=== PATIENT | female | born 1955 | race Caucasian/White ===

== ENCOUNTER 2020-04-01 09:06 | Outpatient (REF) | payer BC, SELFPAY ==
--- NOTE | ~2020-04-01 | MM_ITS ---
EXAMINATION: MM SCREENING DIGITAL BREAST TOMOSYNTHESIS, BILATERAL CLINICAL INFORMATION: Screening. Asymptomatic. The lifetime risk of breast cancer based on the Tyrer-Cuzick Model is 8%. COMPARISON: Mammography: 01/07/2019, 12/24/2017, 12/06/2016 TECHNIQUE: Digital breast tomosynthesis is performed in both the craniocaudal and mediolateral oblique views along with computer-aided detection (CAD). Synthesized 2D images are generated from the tomosynthesis. FINDINGS: There are scattered areas of fibroglandular density (ACR BI-RADS breast composition Category b). There are no significant masses, abnormal calcifications, or other abnormalities. Bilateral upper quadrant asymmetries are similar to prior studies. No developing density. No significant changes. MM/MM tomosynthesis screening BI IMPRESSION: No significant changes from prior exams. ASSESSMENT: BI-RADS 2: Benign RECOMMENDATION: Routine annual mammography screening. This patient's information was entered into a reminder system with a target due date for their next mammogram.
== END 2020-04-01 09:07 | disposition home or self-care (01) ==
LOC: HO.MAMMO 09:06
PROVIDERS: PCP Internal Medicine; Visit Provider Internal Medicine
DX: Z12.31 Encounter for screening mammogram for malignant neoplasm of breast (principal)
CPT/HCPCS: 77063; 77067

== ENCOUNTER 2021-04-25 10:32 | Outpatient (REF) | payer BC, SELFPAY ==
--- NOTE | ~2021-04-25 | MM_ITS ---
EXAMINATION: MM SCREENING DIGITAL BREAST TOMOSYNTHESIS, BILATERAL CLINICAL INFORMATION: Screening. Asymptomatic. The lifetime risk of breast cancer based on the Tyrer-Cuzick Model is 7%. COMPARISON: Mammography: 04/01/2020, 01/07/2019, 12/24/2017, 12/06/2016 TECHNIQUE: Digital breast tomosynthesis is performed in both the craniocaudal and mediolateral oblique views along with computer-aided detection (CAD). Synthesized 2D images are generated from the tomosynthesis. FINDINGS: There are scattered areas of fibroglandular density (ACR BI-RADS breast composition Category b). There are no significant masses, abnormal calcifications, or other abnormalities. Asymmetry upper right breast and lesser upper left breast are similar to prior studies. No developing density. No architectural abnormality or significant change from prior exams. MM/MM tomosynthesis screening BI IMPRESSION: No mammographic evidence of malignancy. ASSESSMENT: BI-RADS 2: Benign RECOMMENDATION: Routine annual mammography screening. This patient's information was entered into a reminder system with a target due date for their next mammogram.
== END 2021-04-25 10:33 | disposition home or self-care (01) ==
LOC: HO.MAMMO 10:32
PROVIDERS: PCP Internal Medicine; Visit Provider Internal Medicine
DX: Z12.31 Encounter for screening mammogram for malignant neoplasm of breast (principal)
CPT/HCPCS: 77063; 77067

== ENCOUNTER 2022-01-11 08:48 | Outpatient (REF) | payer BC, SELFPAY ==
--- NOTE | ~2022-01-11 | MM_ITS ---
EXAMINATION: BONE DENSITOMETRY CLINICAL INDICATION: Osteoporosis. COMPARISON: Previous BD dated 08/27/2019 and baseline BD dated 03/17/2008. TECHNIQUE: Using a RRT Global DXA System (software version: 13.1) manufactured by [employer], dual-energy x-ray absorptiometry was performed of the lumbar spine and left hip. The images are of good technical quality. Summary results are attached. FINDINGS: AP SPINE L1-L2 (excluding L3 and L4): The data of L1-L4 has been changed to exclude the L3 and L4 vertebral bodies, because degenerative changes at these levels may cause overestimation of lumbar spine density. Current: BMD 0.981 g/cm2, Z-score 0.6, T-score -1.5, osteopenia, 5.9% decrease from previous, 13.2% decrease from baseline (<5% change is not significant). Prior: BMD 1.043 g/cm2. Baseline: BMD 1.130 g/cm2. LEFT FEMUR, NECK: Current: BMD 0.634 g/cm2, Z-score -1.0, T-score -2.9, osteoporosis. Prior: BMD 0.692 g/cm2. Baseline: BMD 0.795 g/cm2. LEFT FEMUR, TOTAL: Current: BMD 0.713 g/cm2, Z-score -0.6, T-score -2.3, osteopenia, 3.0% decrease from previous, 18.2% decrease from baseline (<5% change is not significant). Prior: BMD 0.735 g/cm2. Baseline: BMD 0.872 g/cm2. IDENTIFIED RISK FACTORS: Menopause, osteoporosis. HISTORY OF FRACTURE: None listed. MEDICATIONS: Bisphosphonate, multivitamin. MM/XR DEXA axial skeleton IMPRESSION: 1. DIAGNOSIS: Osteoporosis based on the lowest T-score value of -2.9 in the femoral neck applying World Health Organization criteria. 2. 10-YEAR FRACTURE RISK PREDICTION, FRAX: According to the guidelines, FRAX calculation should only be performed on patients in the osteopenia bone density category. Therefore, FRAX was not performed on this patient. 3. Treatment Recommendations: NOF guidelines recommend consideration for treatment in postmenopausal women and men age 50 and older presenting with the following: -A hip or vertebral (clinical or morphometric) fracture. -T-score less than or equal to -2.5 at the femoral neck or spine after appropriate evaluation to exclude secondary causes. -Low bone mass at the hip or spine and a 10-year fracture probability by FRAX of greater than or equal to 3% for hip fracture or greater than or equal to 20% for major osteoporotic fracture based on the [place] adapted WHO algorithm. 4. Other Recommendations: All treatment decisions require clinical judgment and consideration of individual patient factors, including patient preferences, comorbidities, previous drug use, risk factors not captured in the FRAX model (e.g. frailty, falls, vitamin D deficiency, increased bone turnover, interval significant decline in bone density) and possible under or overestimation of fracture risk by FRAX. Additional medical evaluation for secondary cause of low bone mineral density may be appropriate. FUTURE SCAN RECOMMENDATION: People with diagnosed cases of osteoporosis or at high risk for fracture should have regular bone mineral density tests. For patients eligible for Medicare, routine testing is allowed once every 2 years. The testing frequency can be increased to one year for patients who have rapidly progressing disease, those who are receiving or discontinuing medical therapy to restore bone mass, or have additional risk factors.
== END 2022-01-11 08:49 | disposition home or self-care (01) ==
LOC: HO.MAMMO 08:48
PROVIDERS: Visit Provider Internal Medicine Endocrinology, Diabetes & Metabolism
DX: Z13.820 Encounter for screening for osteoporosis (principal); Z78.0 Asymptomatic menopausal state; M81.0 Age-related osteoporosis without current pathological fracture
CPT/HCPCS: 77080

== ENCOUNTER 2022-06-09 14:51 | Outpatient (REF) | payer BC, SELFPAY ==
--- NOTE | ~2022-06-09 | MM_ITS ---
EXAMINATION: MM SCREENING DIGITAL BREAST TOMOSYNTHESIS, BILATERAL CLINICAL INFORMATION: Screening. Asymptomatic. The lifetime risk of breast cancer based on the Tyrer-Cuzick Model is 7%. COMPARISON: Mammography: 04/25/2021, 04/01/2020, 01/07/2019, 12/24/2017 TECHNIQUE: Digital breast tomosynthesis is performed in both the craniocaudal and mediolateral oblique views along with computer-aided detection (CAD). Synthesized 2D images are generated from the tomosynthesis. FINDINGS: There are scattered areas of fibroglandular density (ACR BI-RADS breast composition Category b). No architectural abnormality or developing density or significant change from prior studies. Again, there is parenchymal asymmetry upper right breast similar to prior studies. There are no significant masses, abnormal calcifications, or other abnormalities. The axilla and skin contours are unremarkable. No significant changes. MM/MM tomosynthesis screening BI IMPRESSION: No mammographic evidence of malignancy. ASSESSMENT: BI-RADS 2: Benign RECOMMENDATION: Routine annual mammography screening. This patient's information was entered into a reminder system with a target due date for their next mammogram.
== END 2022-06-09 14:52 | disposition home or self-care (01) ==
LOC: HO.MAMMO 14:51
PROVIDERS: PCP Internal Medicine; Visit Provider Internal Medicine
DX: Z12.31 Encounter for screening mammogram for malignant neoplasm of breast (principal)
CPT/HCPCS: 77063; 77067

== ENCOUNTER 2023-06-20 09:33 | Outpatient (REF) | payer BC, SELFPAY | END 2023-06-20 09:34 | disposition home or self-care (01) | LOC: HO.MAMMO 09:33 | PROVIDERS: PCP Internal Medicine; Visit Provider Internal Medicine | DX: Z12.31 Encounter for screening mammogram for malignant neoplasm of breast (principal) | CPT/HCPCS: 77063; 77067 ==

== ENCOUNTER → 2023-06-20 09:45 | Outpatient (BNV) | payer BC, SELFPAY | PROVIDERS: PCP Internal Medicine; Visit Provider Radiology Diagnostic Radiology | DX: Z12.31 Encounter for screening mammogram for malignant neoplasm of breast (principal) | CPT/HCPCS: 77063; 77067 ==

== ENCOUNTER 2024-01-15 09:49 | Outpatient (REF) | payer MEDICARE, SELFPAY ==
--- NOTE | ~2024-01-15 | MM_ITS ---
EXAMINATION: BONE DENSITOMETRY CLINICAL INDICATION: Osteoporosis. COMPARISON: Previous BD dated 01/11/2022 and baseline BD dated 03/17/2008. TECHNIQUE: Using a [employer] DXA System (software version: 13.1) manufactured by [email or web address], dual-energy x-ray absorptiometry was performed of the lumbar spine and left hip. The images are of good technical quality. Summary results are attached. FINDINGS: LEFT FEMUR, NECK: Current: BMD 0.653 g/cm2, Z-score -0.8, T-score -2.8, osteoporosis. Prior: BMD 0.634 g/cm2. Baseline: BMD 0.795 g/cm2. LEFT FEMUR, TOTAL: Current: BMD 0.710 g/cm2, Z-score -0.6, T-score -2.4, osteopenia, 0.4% decrease from previous, 18.6% decrease from baseline (<5% change is not significant). Prior: BMD 0.713 g/cm2. Baseline: BMD 0.872 g/cm2. AP SPINE L1-L4: Current: BMD 1.091 g/cm2, Z-score 1.4, T-score -0.7, normal, 2.4% decrease from previous, 9.5% decrease from baseline (<5% change is not significant). Prior: BMD 1.118 g/cm2. Baseline: BMD 1.205 g/cm2. IDENTIFIED RISK FACTORS: Menopause, height loss, osteoporosis. HISTORY OF FRACTURE: None listed. MEDICATIONS: Calcium supplements or multivitamin, vitamin D, bisphosphonate. MM/XR DEXA axial skeleton IMPRESSION: 1. DIAGNOSIS: Osteoporosis based on the lowest T-score value of -2.8 in the femoral neck applying World Health Organization criteria. 2. 10-YEAR FRACTURE RISK PREDICTION, FRAX: According to the guidelines, FRAX calculation should only be performed on patients in the osteopenia bone density category. Therefore, FRAX was not performed on this patient. 3. Treatment Recommendations: NOF guidelines recommend consideration for treatment in postmenopausal women and men age 50 and older presenting with the following: -A hip or vertebral (clinical or morphometric) fracture. -T-score less than or equal to -2.5 at the femoral neck or spine after appropriate evaluation to exclude secondary causes. -Low bone mass at the hip or spine and a 10-year fracture probability by FRAX of greater than or equal to 3% for hip fracture or greater than or equal to 20% for major osteoporotic fracture based on the [place] adapted WHO algorithm. 4. Other Recommendations: All treatment decisions require clinical judgment and consideration of individual patient factors, including patient preferences, comorbidities, previous drug use, risk factors not captured in the FRAX model (e.g. frailty, falls, vitamin D deficiency, increased bone turnover, interval significant decline in bone density) and possible under or overestimation of fracture risk by FRAX. Additional medical evaluation for secondary cause of low bone mineral density may be appropriate. FUTURE SCAN RECOMMENDATION: People with diagnosed cases of osteoporosis or at high risk for fracture should have regular bone mineral density tests. For patients eligible for Medicare, routine testing is allowed once every 2 years. The testing frequency can be increased to one year for patients who have rapidly progressing disease, those who are receiving or discontinuing medical therapy to restore bone mass, or have additional risk factors. Electronically signed by: Tyler Sparks MD 01/15/2024 11:43 AM JENNIE RIVERA
== END 2024-01-15 09:50 | disposition home or self-care (01) ==
LOC: HO.MAMMO 09:49
PROVIDERS: PCP Internal Medicine; Visit Provider Internal Medicine Endocrinology, Diabetes & Metabolism
DX: M81.0 Age-related osteoporosis without current pathological fracture (principal)
CPT/HCPCS: 77080

== ENCOUNTER 2024-08-14 12:51 | Outpatient (REF) | payer MEDICARE, SELFPAY ==
--- OUTSIDE RECORDS SUMMARY | 2024-08-14 12:56 | XMS_ITS | Patient Health Record ---
Author Organization [facility] Address [address] [place] [id number] Care Team Providers Care Beef Boner Name Role Phone Deangelo Plata MD Primary Care Provider Hitesh Israel [phone] Reason For Referral No Information Plan Of Treatment No Information Insurance Providers Payer Name Payer Address Payer Phone Subscriber Number Group Number Insured Name Patient Relationship to Insured Coverage Start Date Coverage End Date [facility] [address] [place], [place] [id number] TATYANA BUTLER Self - patient is the insured
== END 2024-08-14 12:52 | disposition home or self-care (01) ==
LOC: HO.MAMMO 12:51
PROVIDERS: PCP Internal Medicine; Visit Provider Internal Medicine
DX: Z12.31 Encounter for screening mammogram for malignant neoplasm of breast (principal)
CPT/HCPCS: 77063; 77067

== ENCOUNTER → 2024-08-14 13:00 | Outpatient (BNV) | payer MEDICARE, SELFPAY | PROVIDERS: PCP Internal Medicine; Visit Provider Internal Medicine | DX: Z12.31 Encounter for screening mammogram for malignant neoplasm of breast (principal) | CPT/HCPCS: 77063; 77067 ==